=== PATIENT | female | born 1950 | race Caucasian/White ===

== ENCOUNTER 2023-09-04 05:14 | Emergency (ER) | payer MEDICARE, MEDICAID ==
[~2023-09-04] VITALS: Ht 165.1 cm; Wt 89.1 kg
[~2023-09-04 05:14] MED LIST: ALB0.5UD IH; BENZ-16 PO; EST1T PO; FLO110IN INH; FLUO20CA39 PO; FURO-150 PO; HYDR-4353 PO; IPRA3AMP9 IH; LEVO25TA2 PO; LOSA-416 PO; METF500T PO; METO-539 PO; MONT-48 PO; OMEP20TA43 PO; ONDA4TAB9 PO; PROM6.2527 PO; ROPI2TAB29 PO; SIMV-42 PO; ZOLP10TA5 PO
[2023-09-04 08:17] LABS: BASOPHILS % (AUTO) 0.8 % (0-1); EOSINOPHILS # (AUTO) 0.1 X10'3 (0-0.9); EOSINOPHILS % (AUTO) 2.5 % (0-6); HEMATOCRIT 41.7 % (35.0-45.0); HEMOGLOBIN 14.1 g/dl (12.0-16.0); LYMPHOCYTES # (AUTO) 1.7 X10'3 (1.1-4.8); LYMPHOCYTES % (AUTO) 31.8 % (21-51); MEAN CORPUSCULAR HGB CONC 33.8 g/dL (33.0-36.5); MEAN CORPUSCULAR VOLUME 100.6 FL (78-98); MEAN PLATELET VOLUME 7.4 FL (7.4-10.4); MONOCYTES # (AUTO) 0.5 X10'3 (0-0.9); MONOCYTES % (AUTO) 10.3 % (2-12); NEUTROPHILS # (AUTO) 2.9 X10'3 (1.8-7.7); NEUTROPHILS % (AUTO) 54.6 % (42-75); PLATELET COUNT 217 X10'3 (140-440); RED BLOOD COUNT 4.15 X10'6 (4.20-5.60); RED CELL DISTRIBUTION WIDTH 12.8 % (11.5-14.5); WHITE BLOOD COUNT 5.2 X10'3 (4.5-11.0)
[2023-09-04] MEDS ORDERED: iohexol 350MG/ML 100ml bottle IV ONE (08:26)
[2023-09-04 08:31] LABS: ALBUMIN 3.1 G/DL (3.4-5.0); ANION GAP 4 (8-16); BLOOD UREA NITROGEN 14 MG/DL (7-18); BUN/CREATININE RATIO 10.1 (10.0-20.0); CALCIUM 8.3 MG/DL (8.5-10.1); CHLORIDE 107 MMOL/L (99-107); CREATININE 1.38 MG/DL (0.40-0.90); GLUCOSE 103 MG/DL (70-104); POTASSIUM 4.3 MMOL/L (3.5-5.1); PRO BRAIN NATRIURETIC PEPTIDE 233 PG/ML (0-125); SODIUM 139 MMOL/L (135-145); TOTAL CARBON DIOXIDE 28.2 MMOL/L (24-32); eCRCL 33 ML/MIN; eGFR 38 ML/MIN
[2023-09-04] MEDS: ondansetron/PF 4mg/2ml inj IV ONE (08:33)
[2023-09-04] MEDS: LORazepam 0.5 MG tablet PO ONE (08:33)
[2023-09-04] MEDS: meclizine 12.5mg tablet PO ONE (08:33)
[2023-09-04] MEDS: normal saline 1000ML IV soln IVB ONE (08:33)
[2023-09-04 10:09] VITALS: PULSE 64; RESP 12; TEMP 97.6; O2SAT 99
[2023-09-04] MEDS ORDERED: LORA-269 PO ×2 (10:43→10:47)
[2023-09-04] MEDS ORDERED: ONDA4TAB12 PO (10:49)
[2023-09-04 10:53] VITALS: BP 148/81
== END 2023-09-04 10:55 | disposition home or self-care (01) ==
LOC: ER 05:15
DX: H81.10 Benign paroxysmal vertigo, unspecified ear (principal); I10 Essential (primary) hypertension; I48.91 Unspecified atrial fibrillation; E11.9 Type 2 diabetes mellitus without complications; Z88.0 Allergy status to penicillin; Z88.8 Allergy status to other drugs, medicaments and biological substances; Z91.018 Allergy to other foods; Z79.899 Other long term (current) drug therapy; Z79.84 Long term (current) use of oral hypoglycemic drugs
CPT/HCPCS: 36415; 70450; 70496; 70498; 71045; 80048; 83880; 84484; 85025; 93005; 96361; 96374; 99285; J2405; J3490; J7030; J8597; Q9967